=== PATIENT | male | born 1975 ===

== ENCOUNTER 2024-05-08 19:08 | Emergency (ER) | payer OTHER ==
[~2024-05-08] VITALS: Ht 170.2 cm; Wt 136.1 kg
[2024-05-08 20:21] VITALS: PULSE 80; RESP 20; TEMP 98.1; O2SAT 93
== END 2024-05-08 21:41 | disposition left against medical advice (07) ==
LOC: FSED 20:24
DX: R10.30 Lower abdominal pain, unspecified (principal)
CPT/HCPCS: 99282